=== PATIENT | male | born 1945 | race Caucasian/White ===

== ENCOUNTER 2020-01-17 19:52 | Emergency (ER) | payer MEDICARE, OTHER ==
[2020-01-17 20:05] VITALS: BP 122/91
[2020-01-17] MEDS ORDERED: ceFAZolin 1 GM VIAL IM STA (20:05)
[2020-01-17] MEDS ORDERED: BUFFERED LIDOCAINE 10 ML SYRINGE SUBQ STA (20:05)
--- NOTE | 2020-01-17 20:07 | ED Physician Documentation ---
PD HPI UPPER EXT INJURY - Stated complaint Stated Complaint: LT HAND CHAINSAW INJ - Chief complaint Chief Complaint: Laceration - History obtained from History obtained from: Patient (74-year-old gentleman is up-to-date on tetanus, he was working with a chainsaw and accidentally cut his left hand at home just prior to arrival. Pain is minimal.) Review of Systems Constitutional: reports: Reviewed and negative Throat: reports: Reviewed and negative Cardiac: reports: Reviewed and negative Respiratory: reports: Reviewed and negative PD PAST MEDICAL HISTORY - Past Medical History Cardiovascular: None Respiratory: None Endocrine/Autoimmune: None GI: None : None HEENT: None Psych: None Musculoskeletal: None Derm: None - Past Surgical History Past Surgical History: Yes - Present Medications Home Medications: Ambulatory Orders Medication Instructions Recorded Confirmed Hydrocodone/Acetaminophen 1 - 2 each PO Q6H PRN #15 tablet 03/31/15 [Hydrocodon-Acetaminophen 5-325] Cephalexin [Keflex] 500 mg PO Q6H #28 capsule 01/17/20 Hydrocodone/Acetaminophen 1 - 2 each PO Q6H PRN #14 tablet 01/17/20 [Hydrocodon-Acetaminophen 5-325] - Allergies Allergies/Adverse Reactions: Allergies Allergy/AdvReac Type Severity Reaction Status Date / Time No Known Drug Allergies Allergy Verified 03/31/15 00:39 - Social History Does the pt smoke?: No Smoking Status: Never smoker Does the pt drink ETOH?: Yes Does the pt have substance abuse?: No - Immunizations Immunizations are current?: Yes - POLST Patient has POLST: No PD ED PE NORMAL - Vitals Vital signs reviewed: Yes - General General: Alert and oriented X 3, No acute distress - Extremities Extremities: Other (He has lacerations on the dorsal surface of the left third and fourth fingers. And a Bleich laceration over the middle phalanx of the third finger and an oblique laceration crossing the PIP of the fourth finger. Total laceration length is about 4 cm. On initial evaluation it appears fairly shallow but definitely needs sutures. No evidence of distal neurovascular dysfunction, tendons will be examined more thoroughly after anesthetic.) - Neuro Neuro: Alert and oriented X 3, Normal speech Results - Vitals Vitals: Vital Signs - 24 hr 01/17/20 19:57 Temperature 37.5 C Heart Rate 110 H Respiratory 20 Rate Blood Pressure 122/91 H O2 Saturation 99 Oxygen O2 Source Room air - Rads (name of study) 3v L hand Radiology: EMP read contemporaneously (Fracture with intra-articular involvement of the fourth proximal phalanx of the PIP joint.) Procedures - Laceration (location) Left third and fourth fingers Length in cm: 5 Wound type: Linear, Into subcut fat Neurovascular status: Sensory intact, Motor intact, Vascular intact Tendon involvement: Tendon intact Anesthesia: Lidocaine 1%, With bicarb Wound Preparation: Hibiclens, Irrigated copiously NS Skin layer closure: Nylon, Interrupted, Size #-0 - enter number (4-0), Sutures - enter # (10 sutures in the fourth finger and 10 sutures in the 3rd finger) Other: Tetanus UTD Complexity: Simple - Splint (location) LUE Splint applied by: Tech Type of splint: Fiberglass, Short arm, Volar cock up Other: Patient tolerated well, No complications, Neurovascular intact Departure - Departure Disposition: 01 Home, Self Care Clinical Impression: Laceration Open fracture of finger of left hand Qualifiers: Encounter type: initial encounter Finger: ring finger Phalanx: proximal Fracture alignment: nondisplaced Qualified Code(s): S62.645B - Nondisplaced fracture of proximal phalanx of left ring finger, initial encounter for open fracture Condition: Good Instructions: ED Fx Finger Open, ED Laceration Hand Follow-Up: [facility] [Provider Group] Prescriptions: Cephalexin [Keflex] 500 mg PO Q6H #28 capsule Hydrocodone/Acetaminophen [Hydrocodon-Acetaminophen 5-325] 1 - 2 each PO Q6H PRN #14 tablet PRN Reason: pain Comments: Keep the splint on and dry, do not remove it. Follow-up with the orthopedics office in 3 days for a wound check, call them on Sunday for an appointment.
--- NOTE | 2020-01-17 20:46 | XRAY Report ---
Reason: hand inj Procedure Date: 01/17/2020 Accession Number: [id number] / [id number] Procedure: XR - Hand 3 View LT CPT Code: Final Report FULL RESULT: EXAM: LEFT HAND RADIOGRAPHY EXAM DATE: 01/17/2020 08:32 PM. CLINICAL HISTORY: Hand injury COMPARISON: None. TECHNIQUE: 3 views. FINDINGS: Bones: There is a cortical bone deformity of the distal aspect of the fourth proximal phalanx at the PIP joint. There is mild osteoarthritis of multiple interphalangeal joints. There is degenerative disease of the first carpal metacarpal joint. Joints: No subluxation or dislocation. Soft Tissues: No metallic foreign body. There are periarticular calcifications around the first carpal metacarpal joint. IMPRESSION: 1. Fracture with intra-articular involvement at the fourth proximal phalanx PIP joint. 2. Osteoarthritis. RADIA
[2020-01-17] MEDS ORDERED: HYDROcod/ACET 5/325 Prepack 4 PO STA (20:56)
== END 2020-01-17 21:21 | disposition home or self-care (01) ==
LOC: ED 19:52
DX: S62.645B Nondisplaced fracture of proximal phalanx of left ring finger, initial encounter for open fracture (principal); S61.213A Laceration without foreign body of left middle finger without damage to nail, initial encounter; W29.3XXA Contact with powered garden and outdoor hand tools and machinery, initial encounter; Y93.89 Activity, other specified; Y92.009 Unspecified place in unspecified non-institutional (private) residence as the place of occurrence of the external cause
CPT/HCPCS: 12002; 99283

== ENCOUNTER 2020-01-21 12:08 | Emergency (ER) | payer MEDICARE, OTHER ==
--- NOTE | 2020-01-21 14:13 | XRAY Report ---
Reason: open fx worsening swelling not at fx site. Procedure Date: 01/21/2020 Accession Number: [id number] / [id number] Procedure: XR - Hand 3 View LT CPT Code: Final Report FULL RESULT: EXAM: LEFT HAND RADIOGRAPHY EXAM DATE: 01/21/2020 02:05 PM. CLINICAL HISTORY: Open fracture, worsening swelling not at fracture site. COMPARISON: HAND 3 VIEW LT 01/17/2020 8:17 PM. TECHNIQUE: 3 views. FINDINGS: Bones: The intra-articular fracture of the fourth proximal phalanx at the proximal interphalangeal joint is poorly visualized. There is a corticated bony opacity adjacent to the head of the fourth proximal phalanx which may represent a fracture fragment of uncertain age. Joints: There is moderate osteoarthritis of the interphalangeal joints and the carpometacarpal joint of the thumb. There are ossified loose bodies in the carpometacarpal joint space. Soft Tissues: Normal. No soft tissue swelling. IMPRESSION: 1. Acute or chronic fracture of the head of the fourth proximal phalanx. 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 RADIA
--- NOTE | 2020-01-21 14:17 | ED Physician Documentation ---
PD HPI UPPER EXT INJURY - Stated complaint Stated Complaint: LT ARM SWELLING - Chief complaint Chief Complaint: Ext Problem - History obtained from History obtained from: Patient - History of Present Illness Location: Left, Hand Type of injury: Laceration Where injury occurred: Home Timing - onset: How many days ago (4) Timing - duration: Days (4) Timing - details: Abrupt onset, Still present Improved by: Rest, Immobilization Worsened by: Moving, Palpating Associated symptoms: Swelling, Discolored Contributing factors: No: Anticoagulated Similar symptoms before: Has not had sx before Recently seen: Emergency Dept - Additonal information Additional information: 74-year-old male had a chainsaw laceration to his left hand lacerating 2 fingers with a chip fracture on the ring finger had repair done and is in a splint. He is come in today with increased swelling and pain in his hand and the splint fitting tightly. He has not had fever. He feels that he is able to move his fingers and the fingers do not appear to hurt him.He indicates he has been taking his antibiotic faithfully every 6 hours. Review of Systems Constitutional: denies: Fever, Chills, Fatigue Nose: denies: Congestion Throat: denies: Sore throat Respiratory: denies: Dyspnea, Cough GI: denies: Vomiting PD PAST MEDICAL HISTORY - Past Medical History Past Medical History: Yes Cardiovascular: None Respiratory: None Endocrine/Autoimmune: None GI: None : None HEENT: None Psych: None Musculoskeletal: None Derm: None - Past Surgical History Past Surgical History: Yes Derm: Skin cancer surgery - Present Medications Home Medications: Ambulatory Orders Medication Instructions Recorded Confirmed Hydrocodone/Acetaminophen 1 - 2 each PO Q6H PRN #15 tablet 03/31/15 [Hydrocodon-Acetaminophen 5-325] Cephalexin [Keflex] 500 mg PO Q6H #28 capsule 01/17/20 Hydrocodone/Acetaminophen 1 - 2 each PO Q6H PRN #14 tablet 01/17/20 [Hydrocodon-Acetaminophen 5-325] Sulfamethoxazole/Trimethoprim 1 each PO BID #10 tablet 01/21/20 [Sulfamethoxazole-Tmp Ds Tablet] - Allergies Allergies/Adverse Reactions: Allergies Allergy/AdvReac Type Severity Reaction Status Date / Time No Known Drug Allergies Allergy Verified 03/31/15 00:39 - Social History Does the pt smoke?: No Smoking Status: Never smoker Does the pt drink ETOH?: Yes Does the pt have substance abuse?: No - Immunizations Immunizations are current?: Yes - POLST Patient has POLST: No PD ED PE NORMAL - Vitals Vital signs reviewed: Yes (hypertensive ) - General General: Alert and oriented X 3, No acute distress, Well developed/nourished - HEENT HEENT: Atraumatic, PERRL, EOMI - Respiratory Respiratory: No respiratory distress - Derm Derm: Normal color, Warm and dry, No rash - Extremities Extremities: Other (There is swelling and erythema to the dorsum of the left hand. This is not contiguous with the lacerations to the fingers themselves. The middle finger has some erythema to the distal laceration without drainage. The 4th digit has the fracture and this is the least swollen and least red of the areas. Distal n/v is intact. ) - Neuro Neuro: Alert and oriented X 3, land conservation specialist 2-12 intact, No motor deficit, No sensory deficit, Normal speech Eye Opening: Spontaneous Motor: Obeys Commands Verbal: Oriented GCS Score: 15 - Psych Psych: Normal mood, Normal affect Results - Vitals Vitals: Vital Signs - 24 hr 01/21/20 01/21/20 12:15 16:13 Temperature 36.6 C Heart Rate 98 96 Respiratory 16 14 Rate Blood Pressure 155/78 H 150/84 H O2 Saturation 95 95 Oxygen O2 Source Room air - Rads (name of study) hand Radiology: Prelim report reviewed (Impression acute or chronic fracture of the head of the fourth proximal phalanx. Osteoarthritis of the base of the thumb and interphalangeal joints.), EMP read indepedently, See rad report PD MEDICAL DECISION MAKING - ED course Complexity details: reviewed results, re-evaluated patient, considered differential, d/w patient ED course: 74-year-old male with a chainsaw laceration to his hand 4 days ago has swelling to the dorsum of the hand today with erythema. The initial impression is that he has cellulitis but the pattern appears over the dorsum of the hand and is not contiguous with the lacerations. The lacerations do not appear acutely infected. After removal of the patient's splint and a period of time in the emergency department the swelling and erythema resolved. I suspect this is all related to positioning and placement of the bandages on his splint. His splint itself is well formed fits well the wrapping appears to have been used quite heavily and is soiled quite heavily. He appears to have been working with his hand. He denies this. I have encouraged him to reduce his use of the hand we have given t he patient a dose of rocephin IM and we will add septra to his antibiotic regimen. His hand is cleaned and re-wrapped. Departure - Departure Disposition: 01 Home, Self Care Clinical Impression: Healing laceration External constriction of hand Qualifiers: Encounter type: initial encounter Laterality: left Qualified Code(s): S60.542A - External constriction of left hand, initial encounter Condition: Stable Instructions: ED Laceration Hand, ED Splint Care Fiberglass Follow-Up: [facility] [Provider Group] Prescriptions: Sulfamethoxazole/Trimethoprim [Sulfamethoxazole-Tmp Ds Tablet] 1 each PO BID #10 tablet Comments: Today it appears the swelling on your hand is due to constriction from your splint. Reduce the use of your left hand and keep the splint clean and dry. Keep the hand elevated to prevent swelling. Be certain it is not too tight and if it seems to tight remove it. Follow up with the orthopedic surgeons as planned this week. Discharge Date/Time: 01/21/20 16:14
[2020-01-21] MEDS ORDERED: LIDOCAINE 1% 2 ML VIAL MC ONE (14:56)
[2020-01-21] MEDS ORDERED: cefTRIAXone 1 GM VIAL IM STA (14:56)
[2020-01-21 16:14] VITALS: BP 150/84
== END 2020-01-21 16:14 | disposition home or self-care (01) ==
LOC: ED 12:08
DX: S60.542A External constriction of left hand, initial encounter (principal); W49.09XA Other specified item causing external constriction, initial encounter; S62.615B Displaced fracture of proximal phalanx of left ring finger, initial encounter for open fracture; W29.3XXA Contact with powered garden and outdoor hand tools and machinery, initial encounter; M19.042 Primary osteoarthritis, left hand
CPT/HCPCS: 96372; 99283; 99284